=== PATIENT | female | born 1945 | race Caucasian/White ===

== ENCOUNTER 2016-07-18 00:28 | Inpatient (IN) | payer MEDICARE ==
[2016-07-18] VITALS (14 sets, daily range): BP systolic 114–158; BP diastolic 73–88; PULSE 80–114; RESP 16–20; TEMP 96.3–98.3; O2SAT 95–98
[~2016-07-18] VITALS: Ht 149.9 cm; Wt 81.0 kg
[~2016-07-18 00:28] MED LIST: ASPI325T PO
[2016-07-18 01:35] LABS: AUTOMATED NEUTROPHIL # 13.4 TH/MM3 (1.8-7.7); BASOPHIL # 0.7 TH/MM3 (0-0.2); BASOPHIL % 3.8 % (0.0-2.0); EOSINOPHIL % 0.2 % (0.0-4.0); LYMPH % 18.2 % (9.0-44.0); LYMPHOCYTE # 3.3 TH/MM3 (1.0-4.8); MEAN CELL VOLUME 88.2 FL (80.0-100.0); MEAN CORPUSCULAR HEMOGLOBIN 28.9 PG (27.0-34.0); MEAN CORPUSCULAR HGB CONC 32.8 % (32.0-36.0); MONO % 5.2 % (0.0-8.0); NEUT % 72.6 % (16.0-70.0); PLATELET COUNT 358 TH/MM3 (150-450); RED CELL DISTRIBUTION WIDTH 13.2 % (11.6-17.2); WHITE BLOOD COUNT 18.4 TH/MM3 (4.0-11.0)
[2016-07-18 01:36] LABS: HEMO FLAGS DIFF FINAL
[2016-07-18 01:42] LABS: CHLORIDE 102 MEQ/L (98-107); POTASSIUM 3.8 MEQ/L (3.5-5.1); SODIUM (NA) 138 MEQ/L (136-145)
[2016-07-18 01:45] LABS: ANION GAP 12 MEQ/L (5-15); BICARBONATE 23.9 MEQ/L (21.0-32.0)
[2016-07-18 01:46] LABS: BLOOD UREA NITROGEN 10 MG/DL (7-18)
[2016-07-18 01:48] LABS: ALT (GPT) 27 U/L (10-53); AST (GOT) 22 U/L (15-37); GLOMERULAR FILTRATION RATE 55 ML/MIN (>89)
[2016-07-18 01:51] LABS: ALKALINE PHOSPHATASE 80 U/L (45-117)
[2016-07-18] MEDS ORDERED: ONDANSETRON HCL 4 MG/2 ML VIAL IV PUSH ONE ×2 (02:45→05:45)
[2016-07-18] MEDS ORDERED: SODIUM CHLOR 0.9% 1000 ML INJ 1,000 ML IV ONE (02:45)
[2016-07-18] MEDS ORDERED: PANTOPRAZOLE SODIUM 40 MG VIAL IV PUSH ONE (02:45)
--- NOTE | 2016-07-18 02:47 | PD ---
HPI Chief Complaint: GI Complaint Time Seen by Provider: 02:41 Travel History International Travel<30 days: No Contact w/Intl Traveler<30days: No Traveled to known affect area: No History of Present Illness HPI 70-year-old female presents to the emergency department by private transportation in the care of her spouse for evaluation of nausea vomiting abdominal discomfort and decreased bowel movement since Sunday evening. Patient has had previous partial small bowel obstruction. Patient has had previous cholecystectomy and hysterectomy. Patient also has history of diverticulosis without previous diverticulitis. Patient denies dysuria frequency or urgency. Patient has not noticed any fever or chills. Patient denies any chronic medical conditions. Patient rates pain 8/10 in intensity. Patient has had bilious emesis but no coffee-ground emesis hematemesis melena or hematochezia. Patient is unable to identify exacerbating or alleviating factors. Patient has not been able to tolerate oral hydration. PFSH Past Medical History Narrative Medical ADHD arthritis GERD headache diverticulosis PUD hysterectomy cholecystectomy tonsillectomy small bowel obstruction; no tobacco use; nursing notes reviewed ADHD: Yes Arthritis: Yes Asthma: No Autoimmune Disease: No Blood Disorders: No Anxiety: No Depression: No Heart Rhythm Problems: No Cancer: No Cardiovascular Problems: No High Cholesterol: No Chemotherapy: No Chest Pain: No Congestive Heart Failure: No COPD: No Cerebrovascular Accident: No Diminished Hearing: No Endocrine: No Gastrointestinal Disorders: Yes (SMALL BOWEL OBSTRUCTION) GERD: Yes Glaucoma: No Genitourinary: Yes ("WEAK BLADDER") Headaches: Yes Hepatitis: No Hiatal Hernia: No Hypertension: No Immune Disorder: No Kidney Stones: No Musculoskeletal: Yes Neurologic: Yes Psychiatric: No Reproductive: No Respiratory: Yes Immunizations Current: No ( PT STATES SHE IS ALLERGIC TO VACCINES) Migraines: No Myocardial Infarction: No Radiation Therapy: No Renal Failure: No Seizures: No Sickle Cell Disease: No Sleep Apnea: No Ulcer: Yes Tetanus Vaccination: Never Vaccinated Influenza Vaccination: No ?: Not Menopausal: Yes : 2 Para: 2 Dilation and Curettage (D&C): Yes Past Surgical History Abdominal Surgery: Yes AICD: No Appendectomy: No Arteriovenous Shunt: No Cardiac Surgery: No Cholecystectomy: Yes Ear Surgery: No Endocrine Surgery: No Eye Surgery: No Genitourinary Surgery: No Gynecologic Surgery: No Hysterectomy: Yes Insulin Pump: No Joint Replacement: No Oral Surgery: Yes Pacemaker: No Thoracic Surgery: No Tonsillectomy: Yes Other Surgery: Yes Social History Alcohol Use: No Tobacco Use: No Substance Use: No Allergies-Medications (Allergen,Severity, Reaction): Coded Allergies: Mercurial Derivatives (Verified Allergy, Severe, 07/18/16) Penicillin (Verified Allergy, Severe, Hives, 07/18/16) Sulfa (Verified Allergy, Severe, Hives, 07/18/16) Tetanus Toxoid (Verified Allergy, Severe, 07/18/16) Cipro (Verified Allergy, Intermediate, CRAZY, ANXIOUS, VERY ANGRY, 07/18/16 ) Alcohol (Verified Allergy, Mild, 07/18/16) Neosporin (Verified Adverse Reaction, Severe, Rash, 07/18/16) Reported Meds & Prescriptions Reported Meds & Active Scripts Active No Active Prescriptions or Reported Medications Review of Systems Except as stated in HPI: all other systems reviewed are Neg General / Constitutional: No: Fever, Chills HENT: No: Congestion Cardiovascular: No: Chest Pain or Discomfort Respiratory: No: Shortness of Breath Gastrointestinal: Positive: Nausea, Vomiting, Abdominal Pain, No: Diarrhea, Hematemesis, Hematochezia, Loss of Appetite Genitourinary: No: Dysuria, Flank Pain Musculoskeletal: No: Myalgias, Arthralgias Skin: No Rash Neurologic: No: Weakness Psychiatric: No: Anxiety Hematologic/Lymphatic: No: Easy Bruising Physical Exam Narrative GENERAL: Well-developed well-nourished female in no acute distress no respiratory distress SKIN: Warm and dry. HEAD: Atraumatic. Normocephalic. EYES: Pupils equal and round. No scleral icterus. No injection or drainage. ENT: No nasal bleeding or discharge. Mucous membranes pink and moist. NECK: Trachea midline. No JVD. CARDIOVASCULAR: Regular rate and rhythm. RESPIRATORY: No accessory muscle use. Clear to auscultation. Breath sounds equal bilaterally. GASTROINTESTINAL: Abdomen soft, non-tender, nondistended. Hepatic and splenic margins not palpable. MUSCULOSKELETAL: Extremities without clubbing, cyanosis, or edema. No obvious deformities. NEUROLOGICAL: Awake and alert. No obvious cranial nerve deficits. Motor grossly within normal limits. Five out of 5 muscle strength in the arms and legs. Normal speech. PSYCHIATRIC: Appropriate mood and affect; insight and judgment normal. Data Data Last Documented VS Vital Signs Date Time Temp Pulse Resp B/P Pulse Ox O2 Delivery O2 Flow Rate FiO2 07/18/16 04:00 88 16 119/78 97 Room Air 07/18/16 00:42 98.3 Orders Complete Blood Count With Diff (07/18/16 01:21) Comprehensive Metabolic Panel (07/18/16 01:21) Urinalysis - C+S If Indicated (07/18/16 01:21) Iv Access Insert/Monitor (07/18/16 01:21) Oxygen Administration (07/18/16 01:21) Oximetry (07/18/16 01:21) Lipase (07/18/16 01:21) Ct Abd/Pel W Iv Contrast(Rout) (07/18/16 ) Ondansetron Inj (Zofran Inj) (07/18/16 02:45) Sodium Chlor 0.9% 1000 Ml Inj (Ns 1000 M (07/18/16 02:45) Pantoprazole Inj (Protonix Inj) (07/18/16 02:45) Urine Culture (07/18/16 03:50) Iohexol 350 Inj (Omnipaque 350 Inj) (07/18/16 04:18) Metoclopramide Inj (Reglan Inj) (07/18/16 05:15) Admit Order (Ed Use Only) (07/18/16 ) ^ Saline Lock (07/18/16 05:35) Resp Oxygen Alejandro C Titrat 1-4 L (07/18/16 ) ^ Notify Dr: Other (07/18/16 05:35) Sodium Chloride 0.9% Flush (Ns Flush) (07/18/16 09:00) Sodium Chloride 0.9% Flush (Ns Flush) (07/18/16 05:45) Ng Gastric Tube Insert/Monitor (07/18/16 05:37) Place Ng Tube To Low [place] (07/18/16 05:37) Ondansetron Inj (Zofran Inj) (07/18/16 05:45) Sodium Chlor 0.9% 1000 Ml Inj (Ns 1000 M (07/18/16 05:45) Labs Laboratory Tests Test 07/18/16 07/18/16 01:20 03:50 White Blood Count 18.4 TH/MM3 Red Blood Count 5.10 MIL/MM3 Hemoglobin 14.8 GM/DL Hematocrit 45.0 % Mean Corpuscular Volume 88.2 FL Mean Corpuscular Hemoglobin 28.9 PG Mean Corpuscular Hemoglobin 32.8 % Concent Red Cell Distribution Width 13.2 % Platelet Count 358 TH/MM3 Mean Platelet Volume 9.7 FL Neutrophils (%) (Auto) 72.6 % Lymphocytes (%) (Auto) 18.2 % Monocytes (%) (Auto) 5.2 % Eosinophils (%) (Auto) 0.2 % Basophils (%) (Auto) 3.8 % Neutrophils # (Auto) 13.4 TH/MM3 Lymphocytes # (Auto) 3.3 TH/MM3 Monocytes # (Auto) 1.0 TH/MM3 Eosinophils # (Auto) 0.0 TH/MM3 Basophils # (Auto) 0.7 TH/MM3 CBC Comment DIFF FINAL Differential Comment Sodium Level 138 MEQ/L Potassium Level 3.8 MEQ/L Chloride Level 102 MEQ/L Carbon Dioxide Level 23.9 MEQ/L Anion Gap 12 MEQ/L Blood Urea Nitrogen 10 MG/DL Creatinine 1.00 MG/DL Estimat Glomerular Filtration 55 ML/MIN Rate Random Glucose 126 MG/DL Calcium Level 10.1 MG/DL Total Bilirubin 1.0 MG/DL Aspartate Amino Transf 22 U/L (AST/SGOT) Alanine Aminotransferase 27 U/L (ALT/SGPT) Alkaline Phosphatase 80 U/L Total Protein 8.2 GM/DL Albumin 4.1 GM/DL Lipase 126 U/L Urine Collection Type CLEAN CATCH Urine Color YELLOW Urine Turbidity CLEAR Urine pH 6.0 Urine Specific [place] 1.005 Urine Protein NEG mg/dL Urine Glucose (UA) NEG mg/dL Urine Ketones NEG mg/dL Urine Occult Blood NEG Urine Nitrite NEG Urine Bilirubin NEG Urine Leukocyte Esterase NEG Urine RBC 0-3 /hpf Urine WBC 3-5 /hpf Urine WBC Clumps OCC Urine Squamous Epithelial 0-5 /hpf Cells Urine Calcium Oxalate Crystals RARE /hpf Urine Bacteria RARE /hpf Urine Hyaline Casts 3-5 /lpf Urine Mucus OCC /lpf Microscopic Urinalysis Comment CULTURE INDICATED [facility] Medical Decision Making Medical Screen Exam Complete: Yes Emergency Medical Condition: Yes Medical Record Reviewed: Yes Interpretation(s) EKG: Sinus tachycardia rate [address] elevation or injury pattern change or ectopy noted CBC & BMP Diagram 07/18/16 01:20 Urinalysis positive white blood cells positive bacteria positive calcium oxalate crystals; culture indicated Last Impressions Abdomen/Pelvis CT 07/18/16 0000 Signed Impressions: Service Date/Time: Monday, July 18, 2016 03:58 - CONCLUSION: 1. Findings of early complete or partial small bowel obstruction with transition zone in the distal ileum. Geo Brunner MD Differential Diagnosis Vomiting, bowel obstruction, diverticulosis, colitis, ACS, UTI Narrative Course IV access obtained specimens collected and sent for resulting patient administered Zofran and normal saline along with Protonix White cell count elevated 18,000 CT abdomen and pelvis ordered Patient Nothing by mouth CT abdomen and pelvis consistent with partial versus complete small bowel obstruction; Leukocytosis consistent with stress demargination and dehydration; patient was spouse at bedside informed of imaging results; patient aware plan for admission [facility]'s [facility] Wu Patient complaining of ongoing nausea additional Zofran administered and ordered for NG tube insertion and intermittent low wall suction Sepsis Criteria SIRS Criteria (2 or more): Heart rate over 90, WBC > 17458, < 4000 or > 10% bands Physician Communication Physician Communication discused with Vazquez Zuñiga --admit to Dr Wu Diagnosis Primary Impression: SBO (small bowel obstruction) Additional Impression: SIRS (systemic inflammatory response syndrome) Admitting Information Admitting Physician Requests: Admit Scripts No Active Prescriptions or Reported Meds Donna Bui MD Jul 18, 2016 02:47
[2016-07-18 04:02] LABS: BLOOD, URINE NEG (NEG); GLUCOSE,URINE NEG (NEG); KETONE, URINE NEG (NEG); NITRITE,URINE NEG (NEG)
[2016-07-18 04:08] LABS: METHOD OF COLLECTION CLEAN CATCH; MUCUS URINE OCC /lpf (OCC); SQUAMOUS EPITHELIAL CELL URINE 0-5 /hpf (0-5); URINE COLOR YELLOW (YELLW/STRAW)
[2016-07-18 04:10] LABS: BACTERIA, URINE RARE /hpf; COMMENT (UR) CULTURE INDICATED; CULTURE IF INDICATED CULTURE INDICATED; RBC, URINE 0-3 /hpf (0-3)
[2016-07-18 04:12] LABS: CALCIUM OXALATE CRYSTALS,URINE RARE /hpf
[2016-07-18] MEDS ORDERED: IOHEXOL 350 MG/ML 10 ML VIAL (for RAD DIAG) IV ONE (04:18)
--- NOTE | 2016-07-18 04:50 | RADHPO ---
EXAM DATE/TIME: 07/18/2016 03:58 [facility] COMPARISON: CT ABDOMEN & PELVIS W CONTRAST, December 23, 2015, 15:29. INDICATIONS : Nausea. Vomiting. Epigastric pain. IV CONTRAST: 75 cc Omnipaque 350 (iohexol) IV ORAL CONTRAST: No oral contrast ingested. RADIATION DOSE: 19.86 CTDIvol (mGy) MEDICAL HISTORY : Gastroesophageal reflux disease. SURGICAL HISTORY : Cholecystectomy. Hysterectomy. ENCOUNTER: Initial ACUITY: 1 day PAIN SCALE: 4/10 LOCATION: Bilateral upper quadrant TECHNIQUE: Volumetric scanning of the abdomen and pelvis was performed. Using automated exposure control and ad justment of the mA and/or kV according to patient size, radiation dose was kept as low as reasonably achievable to obtain optimal diagnostic quality images. FINDINGS: There are paraseptal emphysematous changes in the basesA small hiatal hernia is present. The liver an d spleen are normal in size and no focal defects are identified. The gallbladder is absent. The pancr eas demonstrates normal contour without evidence of mass or ductal dilatation. The adrenal glands and kidneys appear normal bilaterally. No hydronephrosis or mass lesions are identified. There are findi ngs of early complete or partial small bowel obstruction with a transition zone in the distal ileum. No free air is identified. Examination of the pelvis demonstrates no evidence of free fluid or pelvic mass. No abnormally enlarg ed inguinal or retroperitoneal lymph nodes are present. The bladder is unremarkable. There is diverti culosis without evidence of diverticulitis. CONCLUSION: 1. Findings of early complete or partial small bowel obstruction with transition zone in the distal i leum. Geo Brunner MD on July 18, 2016 at 4:44 Board Certified Radiologist. This report was verified electronically.
[2016-07-18] MEDS ORDERED: METOCLOPRAMIDE HCL 10 MG/2 ML VIAL IV PUSH ONE (05:15)
[2016-07-18] MEDS: SODIUM CHLOR 0.9% 1000 ML INJ 1,000 ML IV SCH ×3 (05:41→21:48)
[2016-07-18] MEDS ORDERED: SODIUM CHLORIDE 0.9% FLUSH 5 ML FLUSH IVF PRN (05:45)
[2016-07-18] MEDS ORDERED: ACETAMINOPHEN 650 MG SUPP PR PRN (07:00)
[2016-07-18] MEDS ORDERED: ONDANSETRON HCL 4 MG/2 ML VIAL IV PRN (07:00)
[2016-07-18] MEDS ORDERED: MORPHINE SULFATE 4 MG/ML INJ IV PRN (07:00)
[2016-07-18] MEDS: SODIUM CHLORIDE 0.9% FLUSH 5 ML FLUSH IVF SCH ×2 (08:59→21:48)
[2016-07-18] MEDS: HEPARIN SODIUM - SQ 10,000 UNITS/ML VIAL SQ SCH ×2 (09:00→21:00)
[2016-07-18] MEDS ORDERED: FAMOTIDINE 20 MG/2 ML VIAL IV PUSH SCH (09:00)
--- NOTE | 2016-07-18 09:42 | MH ---
cc: [facility]List DATE OF ADMISSION: 07/18/2016 CHIEF COMPLAINT Abdominal pain HISTORY OF PRESENT ILLNESS This is a 70-year-old female with past medical-surgical history significant for ADHD, arthritis, gastroesophageal reflux disease, headache, diverticulosis, peptic ulcer disease, hysterectomy, cholecystectomy, tonsillectomy, small bowel obstruction in the past, came to the ER at [facility] complaining of nausea, vomiting and abdominal discomfort and decreased bowel movement since Sunday evening. She had a previous partial bowel obstruction. The patient has a previous cholecystectomy and hysterectomy. The patient saying that the pain was about 7-8 of 10, with cramping and had nausea, vomiting and she denies any frequent painful urination, any chest pain, shortness of breath, any blood in stool, blackened stool, black stool or any other symptoms. When I examined the patient the patient had two bowel movements and she states that she has no abdominal pain at the time of examination and she feels 100% fine. Other than that nothing significant past medical-surgical history as dictated above. SOCIAL HISTORY Denies smoking, drinking, taking any drugs. Lives at home. She is . 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 FAMILY HISTORY: The family history significant for coronary artery disease. ALLERGIES MERCURIAL DERIVATIVES PENICILLIN SULFA NEOSPORIN ALCOHOL TETANUS TOXOID REVIEW OF SYSTEMS On review of systems. All review of systems are negative at the time. PHYSICAL EXAMINATION IN GENERAL: This is an 70-year female sitting on the bed not in acute distress. VITAL SIGNS: Vital signs: Temperature 98.0, heart rate 104, respirations 16, blood pressure 114/73, O2 saturation 95% room air. HEAD, EYES, EARS, NOSE, AND THROAT: Normocephalic, atraumatic. EOMI. Oral mucosa moist. NECK: Neck is supple. No visible thyromegaly or neck mass. Trachea central. CARDIOVASCULAR SYSTEM: Regular rate and rhythm. RESPIRATIONS: Respirations clear to auscultation bilaterally. ABDOMEN: Soft, nontender. Bowel sounds. EXTREMITIES: No cyanosis or clubbing, full range of motion of all extremities. NEUROLOGIC: Awake, alert, oriented x4. No focal deficits. SKIN: Warm and dry. PSYCHIATRIC: Psych the patient is cooperative mood, affect is normal. LABORATORY: Lab includes complete blood count totally unremarkable except for white blood count 18.4 high, neutrophils 72.6 high, is 3.8 high. BMP totally unremarkable except for GFR 55 low, glucose random 126 high. LFTs are normal. Urine examination shows cranial white blood cell clumps rare. calcium oxalate crystals rare. urine bacteria rare, hyaline cast three to five. Urine culture pending. CT abdomen and pelvis was done shows finding of early complete loss of partial bowel obstruction with transition zone in distal ileum. ASSESSMENT/PLAN This is a 70-year female who came to the ER diagnosed with. 1. Abdominal pain, nausea, vomiting secondary to early complete a partial small bowel obstruction. The patient had two bowel movement and no abdominal pain, so most likely partial bowel obstruction resolved. 2. History of attention deficit hyperactivity disorder. 3. History of gastroesophageal reflux disease. 4. Protonix 40 mg p.o. daily. 5. History of arthritis. 6. History of diverticulosis in the past. 7. History of small bowel obstruction in the past. 8. Deep venous thrombosis prophylaxis. 9. Heparin 5000 units subcutaneous twice a day. 10. GI prophylaxis, famotidine 20 mg q. 12-hour. 11. We are going to manage the patient on a daily basis and make recommendations on a daily basis. Johnny Wu MD EA/radha /9:09 AM /9:25 AM
[2016-07-18] MEDS ORDERED: KETOROLAC TROMETHAMINE 30 MG/ML (IVP) VIAL IV PUSH PRN (14:00)
--- NOTE | 2016-07-18 18:22 | EKG ---
Date Performed: 07/18/2016 Time Performed: 01:19:48 PTAGE: 70 years EKG: Sinus tachycardia. Patient is no longer in atrial fibrillation compared to the prior tracin g Normal ECG except for rate PREVIOUS TRACING : 09/18/2006 16.22 DOCTOR: Yimi Ludwig Interpretating Date/Time 07/18/2016 18:20:53
[2016-07-18] MEDS: FAMOTIDINE 20 MG/2 ML VIAL IV PUSH SCH (21:48)
[2016-07-19] VITALS: BP 110/73; PULSE 83; RESP 20; TEMP 96.6; O2SAT 96
[2016-07-19] MEDS: SODIUM CHLOR 0.9% 1000 ML INJ 1,000 ML IV SCH (05:45)
[2016-07-19 08:00] VITALS: BP 119/88; PULSE 83; RESP 18; TEMP 97; O2SAT 99
[2016-07-19 08:28] VITALS: O2SAT 94
--- NOTE | 2016-07-19 08:29 | HHI.PR ---
Subjective History of Present Illness Patient feel 100% better eating and tolerating food no acute issue wants to go home today. Vitals/Results Intake & Output 07/18/16 07/18/16 07/19/16 15:00 23:00 07:00 Intake Total 0 ml 1200 ml Output Total 3 ml Balance -3 ml 1200 ml Intake Oral 0 ml IV Total 1200 ml Output Stool Total 3 ml # Voids 7 # Bowel Movements 1 2 Vital Signs Vital Signs Date Time Temp Pulse Resp B/P Pulse Ox O2 Delivery O2 Flow Rate FiO2 07/19/16 08:28 94 21 07/19/16 08:00 97.0 83 18 119/88 99 07/19/16 00:00 96.6 83 20 110/73 96 07/18/16 20:00 96.8 84 20 121/88 98 07/18/16 19:25 96 21 07/18/16 16:00 97.6 90 18 124/82 95 07/18/16 12:00 98.0 88 16 130/74 95 07/18/16 12:00 96 21 07/18/16 09:46 96.3 114 18 129/88 95 CBC/BMP: 07/18/16 0120 07/18/16 0120 Physical Exam General General Appearance: Well Developed, Well Nourished, No Acute Distress, Comfortable Eyes Eye Exam: Pupils Equal, Pupils Reactive, Sclera White, Extraocular Movement Intact Throat Throat Exam: Oral Mucosa [place] & Moist, Oral Pharynx Normal Neck Neck Exam: Neck Supple, Trachea Midline Pulmonary Resp Exam: Clear Bilaterally, Breath Sounds Equal, No Distress Cardiology CV Exam: Regular, Normal Sinus Rhythm Gastrointestinal/Abdomen GI Exam: Soft, Non-Tender, Bowel Sounds Present Musculoskeletal MS Exam: Normal Tone Integumentary Skin Exam: Clear, Warm, Dry, Intact, Normal Turgor Extremeties Extremities Exam: No Edema Neurologic Neuro Exam: Alert, Awake, Oriented, Speech Clear, Moving All Extremities, No Focal Deficits Psychiatric Psych Exam: Appropriate Responses VTE Prophylaxis VTE Prophylaxis Device: SCDs PUD Prophylasis PUD Prophylaxis: Protonix Assessment/Plan Assessment/Plan ASSESSMENT/PLAN This is a 70-year female who came to the ER diagnosed with. 1. Abdominal pain, nausea, vomiting secondary to early complete a partial small bowel obstruction. The patient had two bowel movement and no abdominal pain, so most likely partial bowel obstruction resolved. 2. History of attention deficit hyperactivity disorder. 3. History of gastroesophageal reflux disease. 4. Protonix 40 mg p.o. daily. 5. History of arthritis. 6. History of diverticulosis in the past. 7. History of small bowel obstruction in the past. 8. Deep venous thrombosis prophylaxis. 9. Heparin 5000 units subcutaneous twice a day. 10. GI prophylaxis, famotidine 20 mg q. 12-hour. OK to DC Home today. f/u with PCP 1 week. condition at discharge good Activity as tolerated . Diet cardiac Medicine see discharge medicine list. Discussed Condition with: Patient Johnny Wu MD Jul 19, 2016 08:29
[2016-07-19] MEDS: SODIUM CHLORIDE 0.9% FLUSH 5 ML FLUSH IVF SCH (09:00)
[2016-07-19] MEDS: HEPARIN SODIUM - SQ 10,000 UNITS/ML VIAL SQ SCH (09:00)
[2016-07-19] MEDS: FAMOTIDINE 20 MG/2 ML VIAL IV PUSH SCH (09:18)
== END 2016-07-19 13:12 | disposition home or self-care (01) | DRG 390 ==
LOC: PHED 00:28 → PHEDA 05:38 → PH3A 08:46
PROVIDERS: ADMIT Family Medicine; ATTEND Family Medicine
DX: K56.60 Unspecified intestinal obstruction (principal); F90.9 Attention-deficit hyperactivity disorder, unspecified type; K21.9 Gastro-esophageal reflux disease without esophagitis; M19.90 Unspecified osteoarthritis, unspecified site; K57.90 Diverticulosis of intestine, part unspecified, without perforation or abscess without bleeding
CPT/HCPCS: 74177; 80053; 81001; 83690; 85025; 87086; 93005; 96361; 96374; 96375; C9113; J1885; J2405; J2765; J7030; Q9967

== ENCOUNTER → 2016-07-25 | Outpatient (CLI) | payer MEDICARE ==
[2016-07-25 13:14] LABS: AUTOMATED NEUTROPHIL # 5.6 TH/MM3 (1.8-7.7); BASOPHIL # 0.1 TH/MM3 (0-0.2); BASOPHIL % 1.2 % (0.0-2.0); EOSINOPHIL # 0.3 TH/MM3 (0-0.4); EOSINOPHIL % 2.6 % (0.0-4.0); HEMATOCRIT 38.4 % (35.0-46.0); LYMPH % 34.4 % (9.0-44.0); LYMPHOCYTE # 3.4 TH/MM3 (1.0-4.8); MEAN CELL VOLUME 87.5 FL (80.0-100.0); MEAN CORPUSCULAR HEMOGLOBIN 29.5 PG (27.0-34.0); MEAN CORPUSCULAR HGB CONC 33.8 % (32.0-36.0); MONO % 4.1 % (0.0-8.0); NEUT % 57.7 % (16.0-70.0); RED BLOOD COUNT 4.39 MIL/MM3 (4.00-5.30); RED CELL DISTRIBUTION WIDTH 13.5 % (11.6-17.2); WHITE BLOOD COUNT 9.8 TH/MM3 (4.0-11.0)
[2016-07-25 13:21] LABS: ANION GAP 9 MEQ/L (5-15); AST (GOT) 19 U/L (15-37); BICARBONATE 29.3 MEQ/L (21.0-32.0); BLOOD UREA NITROGEN 10 MG/DL (7-18); CHLORIDE 104 MEQ/L (98-107); GLOMERULAR FILTRATION RATE 73 ML/MIN (>89); GLUCOSE,FASTING 75 MG/DL (74-99); POTASSIUM 3.3 MEQ/L (3.5-5.1); SODIUM (NA) 142 MEQ/L (136-145)
[2016-07-25 13:24] LABS: ALKALINE PHOSPHATASE 71 U/L (45-117); ALT (GPT) 28 U/L (10-53); HDL CHOLESTEROL 51.7 MG/DL (40.0-60.0); LDL CHOLESTEROL 60 MG/DL (0-99); TOTAL BILIRUBIN ADULT 0.8 MG/DL (0.2-1.0)
[2016-07-25 14:15] LABS: HEMO FLAGS AUTO DIFF
[2016-07-25 14:16] LABS: PLATELET ESTIMATE SMEAR NORMAL (NORMAL); PLATELET MORPHOLOGY CLUMPED (NORMAL); SCAN/DIFF AUTO DIFF CONFIRMED
== END ==
LOC: PLAB 10:23
PROVIDERS: ATTEND Internal Medicine
DX: E78.2 Mixed hyperlipidemia (principal); Z79.899 Other long term (current) drug therapy
CPT/HCPCS: 36415; 80053; 80061; 85025

== ENCOUNTER → 2017-07-03 | Outpatient (CLI) | payer MEDICARE ==
[2017-07-03 13:26] LABS: AUTOMATED NEUTROPHIL # 4.7 TH/MM3 (1.8-7.7); BASOPHIL % 0.6 % (0.0-2.0); EOSINOPHIL # 0.1 TH/MM3 (0-0.4); EOSINOPHIL % 1.9 % (0.0-4.0); HEMATOCRIT 40.1 % (35.0-46.0); HEMOGLOBIN 13.5 GM/DL (11.6-15.3); LYMPH % 30.3 % (9.0-44.0); LYMPHOCYTE # 2.3 TH/MM3 (1.0-4.8); MEAN CELL VOLUME 88.1 FL (80.0-100.0); MEAN CORPUSCULAR HEMOGLOBIN 29.7 PG (27.0-34.0); MEAN CORPUSCULAR HGB CONC 33.7 % (32.0-36.0); MEAN PLATELET VOLUME 9.9 FL (7.0-11.0); MONO % 5.3 % (0.0-8.0); MONOCYTE # 0.4 TH/MM3 (0-0.9); NEUT % 61.9 % (16.0-70.0); PLATELET COUNT 246 TH/MM3 (150-450); RED BLOOD COUNT 4.55 MIL/MM3 (4.00-5.30); RED CELL DISTRIBUTION WIDTH 13.1 % (11.6-17.2); WHITE BLOOD COUNT 7.6 TH/MM3 (4.0-11.0)
[2017-07-03 13:46] LABS: ALBUMIN 3.9 GM/DL (3.4-5.0); AST (GOT) 24 U/L (15-37); BLOOD UREA NITROGEN 11 MG/DL (7-18); CALCIUM 9.2 MG/DL (8.5-10.1); CHLORIDE 106 MEQ/L (98-107); GLOMERULAR FILTRATION RATE 62 ML/MIN (>89); GLUCOSE,FASTING 91 MG/DL (74-99); SODIUM (NA) 140 MEQ/L (136-145)
[2017-07-03 13:47] LABS: ALT (GPT) 34 U/L (10-53); CHOLESTEROL 157 MG/DL (120-200); TRIGLYCERIDES 135 MG/DL (42-150)
[2017-07-03 13:56] LABS: ALKALINE PHOSPHATASE 94 U/L (45-117); CHOLESTEROL/ HDL RATIO 3.02 RATIO; HDL CHOLESTEROL 51.9 MG/DL (40.0-60.0); LDL CHOLESTEROL 78 MG/DL (0-99); TOTAL BILIRUBIN ADULT 0.7 MG/DL (0.2-1.0); TOTAL PROTEIN 7.5 GM/DL (6.4-8.2)
== END ==
LOC: PLAB 10:44
PROVIDERS: ATTEND Internal Medicine
DX: E55.9 Vitamin D deficiency, unspecified (principal); E78.2 Mixed hyperlipidemia; Z79.899 Other long term (current) drug therapy; Z12.11 Encounter for screening for malignant neoplasm of colon
CPT/HCPCS: 36415; 80053; 80061; 82306; 84443; 85025